=== PATIENT | female | born 1945 | race Caucasian/White ===

== ENCOUNTER → 2016-08-15 | Day surgery (SDC) | payer OTHER ==
[~2016-08-15] VITALS: Ht 152.4 cm; Wt 101.2 kg
[~2016-08-15] MED LIST: AMBIEN10 M1 PO; GABAPENTIN600 M1 PO; GRALISE600 M2 PO; HUMALOG100 UNIT/2 SC; LEVEMIR100 UNIT/1 SC; LEVOTHYROXINE88 MCG PO; LISINOPRIL-HCT1 EACH PO; LOVENOX30 MG/0.1 SQ; LOVENOX40 MG/0.1 SC; MELOXICAM15 M1 PO; METFORMIN HCL500 M3 PO; METOPROLOL TART25 M1 PO; NORCO 325 MG-51 TAB PO; PERCOCET 5-3251 EACH PO; PRAVACHOL20 M2 PO; PROPAFENONE HC325 M1 PO; RESTASIS1 EACH OPH; VALTREX1 GM PO; VITAMIN D33000 UNIT PO
--- NOTE | 2016-08-15 10:33 | Operative Report ---
Operative/Inv Procedure Report Surgery Date: 08/15/16 Name of Procedure: Left open carpal tunnel release. Pre-Operative Diagnosis: Left carpal tunnel syndrome. Post-Operative Diagnosis: Same. Estimated Blood Loss: scant Surgeon/Counseling Specialist: JUSTIN JASON MD Anesthesia: laryngeal mask airway Monitors: EKG/blood pressure/oxygen saturation. IV Fluids: Lactated Ringer's +1 unit FFP. Implants: None. Urine Output: None. Drains: None. Specimens: None. Microbiology: None. Tourniquet: 17 minutes at 275 mmHg. Complications: None known. Condition: Stable. Operative Indication: The patient is a 70-year-old female with a relatively long-standing history of progressive left handed median neuropathy symptoms and clinical findings and electrophysiological studies all consistent with carpal tunnel syndrome. The patient's symptoms were initially managed conservatively but ultimately in the long run continued to recur and become progressively worse over time. After discussion of the risks and benefits and expected outcomes of continued attempts at nonoperative management which were felt to low longer be acceptable by the patient nor working adequately we did also discuss the same with respect to surgical intervention with open carpal tunnel release surgery. All the patient' s questions were answered at length. She did decide that she would like to move forward with surgical intervention for left carpal tunnel syndrome with an open carpal tunnel release. The patient's medical history is complicated with respect to surgery due to a bleeding disorder. We did coordinate care with Dr. Ospina who has treated her for her bleeding disorder and has gotten her through prior surgeries. We did decide to transfuse the patient several units of FFP beginning with some FFP started before the operative incision and continued during and slightly after the surgery. Arrangements were made for the patient to come in to the same-day surgery unit early in the morning to begin her FFP transfusion. Assuming that this went well the patient was subsequently indicated to be brought down to the operating room to move forward with carpal tunnel release surgery. Operative/Procedure Note Note: The patient was brought to the operating room and placed on the operating room in the supine position. All bony prominences were well padded. The patient was given a dose of IV antibiotics for infection prophylaxis. General anesthesia was then induced by the anesthesiologist. FFP was transfused prior to the patient being brought to the operating room at also continued throughout the case in the operating room. A well-padded tourniquet was applied to the proximal portion of the left arm. The left upper extremity was then prepped and draped in the usual sterile fashion. The palm was marked for a planned volar approach to the carpal canal. This included marking the skin with a skin marker across the palm in line with the ulnar border of the radially abducted thumb. A second skin marking was made with a skin marker along the palm in line with the ulnar border of the middle finger. The intersection of these two lines was anticipated to be roughly the distal margin of the underlying transverse carpal ligament. The skin was marked for the actual palmar skin incision using the patient's natural skin creases running as close as possible from the point of intersection of these two lines in a distal to proximal direction to the level of the distal volar wrist skin flexion crease. The extremity was exsanguinated and the pneumatic tourniquet was inflated to a pressure of 275 mm Hg. The skin incision was then made with a #15 scalpel blade. Sharp dissection was carried down through the skin and subcutaneous tissue with scalpel dissection. Hemostasis was achieved with a combination of manual pressure and electrocautery. Retractors were placed in to the wound and the longitudinal fibers of the palmar fascia were visualized. The palmar fascia was then divided under direct visualization longitudinally in line with the skin incision. Retractors were repositioned deeper in to the wound and the divided palmar fascia was scraped in a radial and ulnar direction off of the underlying transverse carpal ligament. The transverse carpal ligament was then divided longitudinally in line with the skin incision under direct visualization using a scalpel to divide the central portion of the ligament and then using blunt tipped scissors to complete the division of the proximal and distal margins of the ligament after spreading the soft tissues directly above and below the ligament at these locations to isolate the fibers of the ligament. Inspection of the contents of the carpal canal was possible after division of the transverse carpal ligament and teasing the undersurface of the transverse carpal ligament away from underlying adhesions to the contents of the carpal canal. Inspection of the Median nerve within the carpal canal showed the nerve to be significantly constricted and moderately hypovascular.. The surrounding flexor tendons did show moderate swelling secondary to proliferative tenosynovial tissue. A moderately aggressive flexor tenosynovectomy was performed to debulk the flexor tendon mass. A limited epineurotomy of the volar aspect of the Median nerve epineural tissue was performed using blunt tipped scissors to spread the volar epineural tissue. This visually decompressed the hourglass constriction of the nerve and was noted to improve the microvasculature to the nerve. With the carpal canal and Median nerve now adequately decompressed, our attention was directed to closure. The wound was irrigated multiple times with saline. The tourniquet was deflated and hemostasis was achieved once again with manual pressure and electrocautery. The soft tissue repair consisted of direct approximation of the skin margins using 3-0 Prolene placed in interrupted simple fashion. The wound was washed and dried. Adaptic dressing was placed over the suture line followed by a bulky gauze dressing followed by gauze wraps to hold the gauze dressing in place. The gauze dressings were then held in place with a 2 inch Jeff bandage which was applied just snug enough to hold the dressings in place and to provide gentle compression to the palmar wound after surgery. The left upper extremity was placed into a Dalton pillow for elevation. The patient was awakened from general anesthesia and then transferred to the hospital stretcher and then brought to the recovery room in stable condition having tolerated the procedure well.
== END ==
LOC: STS 03:29
DX: G56.02 Carpal tunnel syndrome, left upper limb (principal); D68.1 Hereditary factor XI deficiency; I10 Essential (primary) hypertension; E03.9 Hypothyroidism, unspecified; E11.9 Type 2 diabetes mellitus without complications; Z79.84 Long term (current) use of oral hypoglycemic drugs; I49.3 Ventricular premature depolarization; I48.91 Unspecified atrial fibrillation
CPT/HCPCS: 36415; J0131; J0690; J2250; J3250; P9017